=== PATIENT | male | born 1990 | race Caucasian/White ===

== ENCOUNTER 2018-01-27 07:00 | Emergency (ER) | payer SELFPAY ==
[~2018-01-27] VITALS: Ht 175.3 cm; Wt 102.1 kg
[~2018-01-27 07:00] MED LIST: HYDR-3454 PO
--- OUTSIDE RECORDS SUMMARY | 2018-01-27 07:21 | XMS REPORT | Continuity of Care Document ---
Author Author [facility] Organization [facility] Address Unknown Phone Unavailable Allergies There is no data. Medications There is no data. Problems There is no data. Procedures There is no data. Results There is no data. Encounters ACCT No. Visit Date/Time Discharge Status Pt. Type Provider Facility Loc./Unit Complaint [id number] 05/02/2015 13:01:00 05/02/2015 23:59:59 CLS Emergency JHON HAGAN, USMAN Granados [facility] ER
--- NOTE | 2018-01-27 07:32 | ED EENT ---
History of Present Illness General Chief Complaint: Dental Problems/Pain Stated Complaint: TOOTH PAIN Nursing Triage Note: pt presents to ed to with complaints of l upper dental pain x2 years. reports it is usually controlled by ibuprofen but not recently. Source: patient Exam Limitations: no limitations History of Present Illness Date Seen by Provider: Jan 27, 2018 Time Seen by Provider: 07:27 Initial Comments The patient is a 27-year-old white male who presents with a complaint of dental pain. He reports that this is been a problem for the past 2 years or more. He had previously gone to the ER with this complaint and had been given a shot of penicillin which helped. He takes ibuprofen 1000 mg 4 or 5 times daily for pain. He reports that over the past several days this is not been relieving the pain. In the distant past he had seen a dentist who recommended either filling or extraction; he did not follow through. Location: dental Prearrival Treatment: over the counter meds Allergies and Home Medications Home Medications Hydrocodone/Acetaminophen 1 Each Tablet, 2 EACH PO Q4H PRN for PAIN Prescribed by: USMAN FERREIRA MD on 05/02/15 1514 Review of Systems Review of Systems Constitutional: see HPI Past Cypuaha-Wjeral-Kwdstw Hx Patient Social History Alcohol Use: Rarely Uses Recreational Drug Use: No Smoking Status: Current Everyday Smoker Type Used: Cigarettes Recent Foreign Travel: No Contact w/Someone Who Travel: No Recent Infectious Disease Expo: No Physical Abuse: No Sexual Abuse: No Mistreated: No Fear: No Past Medical History Surgeries: No Respiratory: No Cardiac: No Neurological: No Reproductive Disorders: No Genitourinary: No Gastrointestinal: No Musculoskeletal: No Endocrine: No HEENT: No Cancer: No Psychosocial: No Blood Disorders: No Physical Exam Vital Signs Vital Signs - First Documented 01/27/18 07:12 Temp 97.7 Pulse 63 Resp 20 B/P (MAP) 137/94 (108) Pulse Ox 98 Height, Weight, BMI Height: 5'9.00" Weight: 225lbs. oz. 102.779848xa; BMI Method:Stated General Appearance: mild distress Eyes: bilateral eye normal inspection Ears: bilateral ear auricle normal Nose: normal inspection Mouth/Throat: other (see images) Neck: full range of motion Cardiovascular: normal peripheral pulses, regular rate, rhythm, no edema, no gallop, no JVD, no murmur Respiratory: chest non-tender, lungs clear, normal breath sounds, no respiratory distress, no accessory muscle use Progress/Results/Core Measures Results/Orders Vital Signs/I&O 01/27/18 07:12 Temp 97.7 Pulse 63 Resp 20 B/P (MAP) 137/94 (108) Pulse Ox 98 Blood Pressure Mean: 108 Departure Impression Primary Impression: Dental caries Disposition: 01 HOME, SELF-CARE Condition: Stable/Unchanged Departure-Patient Inst. Decision time for Depature: 07:31 Referrals: NO,LOCAL PHYSICIAN (PCP) Primary Care Physician Patient Instructions: Dental Pain (DC) Add. Discharge Instructions: All discharge instructions reviewed with patient and/or family. Voiced understanding. See a dentist for definitive treatment. I suggest [facility]. Take medications as prescribed. Scripts Cephalexin (Keflex) 250 Mg Capsule 250 MG PO 4 times a day, #30 CAP Prov: ANÍBAL HERNÁNDEZ MD 01/27/18 Images Mouth/Nose 1 - Caries ANÍBAL HERNÁNDEZ MD Jan 27, 2018 07:32
[2018-01-27] MEDS ORDERED: CEPH-506 PO (07:34)
[2018-01-27] MEDS ORDERED: cefTRIAXone 1 GM/10 ML for IV (ROCEPHIN) ONE (07:39)
[2018-01-27] MEDS ORDERED: LIDOCAINE 1% INJ 20 ML 20 ML VIAL ONE (07:39)
[2018-01-27] MEDS: cefTRIAXone 1,000 MG/2.86 ml vial (IM ONLY) IM SCH (07:43)
[2018-01-27 07:57] VITALS: BP 126/80
== END 2018-01-27 07:57 | disposition home or self-care (01) ==
LOC: EDUNIT# 07:00 → ER 07:01
DX: K02.9 Dental caries, unspecified (principal); F17.210 Nicotine dependence, cigarettes, uncomplicated
CPT/HCPCS: 96372; 99284